=== PATIENT | female | born 1955 | race Caucasian/White ===

== ENCOUNTER 2016-06-13 07:49 | Observation (INO) | payer OTHER ==
[~2016-06-13] VITALS: Ht 157.5 cm; Wt 80.0 kg
[2016-06-13] VITALS (7 sets, daily range): BP systolic 128–171; BP diastolic 65–100; PULSE 77–91; RESP 20–22; TEMP 97.6–98.7; O2SAT 92–96
[2016-06-13] MEDS ORDERED: LISI-515 PO (08:19)
[2016-06-13] MEDS ORDERED: ATOR20TA15 PO (08:19)
[2016-06-13] MEDS ORDERED: FLUO-1 PO (08:19)
[2016-06-13] MEDS ORDERED: ASPI1TAB69 PO (08:19)
[2016-06-13 08:29] LABS: AUTOMATED NEUTROPHIL # 2.9 TH/MM3 (1.8-7.7); BASOPHIL % 0.5 % (0.0-2.0); EOSINOPHIL # 0.2 TH/MM3 (0-0.4); EOSINOPHIL % 3.1 % (0.0-4.0); HEMATOCRIT 42.9 % (35.0-46.0); HEMO FLAGS DIFF FINAL; LYMPH % 30.2 % (9.0-44.0); LYMPHOCYTE # 1.6 TH/MM3 (1.0-4.8); MEAN CELL VOLUME 87.7 FL (80.0-100.0); MEAN CORPUSCULAR HEMOGLOBIN 30.5 PG (27.0-34.0); MEAN CORPUSCULAR HGB CONC 34.7 % (32.0-36.0); MONO % 9.8 % (0.0-8.0); NEUT % 56.4 % (16.0-70.0); PLATELET COUNT 240 TH/MM3 (150-450); RED BLOOD COUNT 4.89 MIL/MM3 (4.00-5.30); RED CELL DISTRIBUTION WIDTH 11.9 % (11.6-17.2); WHITE BLOOD COUNT 5.1 TH/MM3 (4.0-11.0)
[2016-06-13 08:43] LABS: APTT (PATIENT) 25.9 SEC (24.3-30.1); PROTHROMBIN TIME - PATIENT 10.9 SEC (9.8-11.6)
[2016-06-13 08:44] LABS: ALT (GPT) 40 U/L (10-53); ANION GAP 13 MEQ/L (5-15); AST (GOT) 34 U/L (15-37); BICARBONATE 21.8 MEQ/L (21.0-32.0); CHLORIDE 103 MEQ/L (98-107); GLOMERULAR FILTRATION RATE 54 ML/MIN (>89); MAGNESIUM 2.2 MG/DL (1.5-2.5); POTASSIUM 3.6 MEQ/L (3.5-5.1); SODIUM (NA) 138 MEQ/L (136-145)
[2016-06-13] MEDS ORDERED: ASPIRIN 325 MG TAB PO ONE (08:45)
[2016-06-13] MEDS ORDERED: SODIUM CHLOR 0.9% 1000 ML INJ 1,000 ML IV ONE (08:45)
--- NOTE | 2016-06-13 08:45 | RADRPT ---
EXAM DATE/TIME: 06/13/2016 08:18 [place] COMPARISON: No previous studies available for comparison. INDICATIONS : Chest pains with palpitations and shortness of breath. MEDICAL HISTORY : None. SURGICAL HISTORY : None. ENCOUNTER: Initial ACUITY: 1 day PAIN SCORE: 9/10 LOCATION: Bilateral chest FINDINGS: A single view of the chest demonstrates the lungs to be symmetrically aerated without evidence of mas s, infiltrate or effusion. The cardiomediastinal contours are unremarkable. Osseous structures are intact. CONCLUSION: No acute disease. Dallas Bates MD FACR on June 13, 2016 at 8:43 Board Certified Radiologist. This report was verified electronically.
[2016-06-13 08:49] LABS: ALKALINE PHOSPHATASE 109 U/L (45-117); BLOOD UREA NITROGEN 16 MG/DL (7-18); CREATINE KINASE 185 U/L (26-192); TOTAL BILIRUBIN ADULT 0.9 MG/DL (0.2-1.0)
--- NOTE | 2016-06-13 08:51 | PD ---
HPI Chief Complaint: Cardiac Complaint Time Seen by Provider: 08:08 Travel History International Travel<30 days: No Contact w/Intl Traveler<30days: No Traveled to known affect area: No History of Present Illness HPI Patient is a 61-year-old female who presents to emergency with complaints of palpitations and high blood pressure. Patient reports that she has history of hypertension, hyperlipidemia, reports that for the past month, she has noticed that her blood pressure has been higher than normal for the past month. Reports that this morning, she woke up and had a high heart rate. Patient reports that she noticed that her pulse rate was in the 140s, reports that her blood pressure was 160/109. Patient reports that she "just felt like something was wrong." Patient denied diaphoresis, nausea or vomiting or shortness of breath or symptoms. Patient reports that she is here visiting from [place]. Denies chest pain at this time. Denies fevers or chills. She denies cough or congestion. PFSH Past Medical History High Cholesterol: Yes Diminished Hearing: No Hypertension: Yes Tetanus Vaccination: < 5 Years Influenza Vaccination: Yes ?: Not : 0 Para: 0 Miscarriage: 0 : 0 Past Surgical History Eye Surgery: Yes (R EYE BIOPSY ) Other Surgery: Yes (BILAT [place] Bunionectomy) Social History Alcohol Use: No Tobacco Use: No Substance Use: No Allergies-Medications (Allergen,Severity, Reaction): Coded Allergies: Tartrazine (FD&C Yellow #5) (Verified Allergy, Severe, 06/13/16) Reported Meds & Prescriptions Reported Meds & Active Scripts Active Reported Aspirin 81 Mg Tabdr 81 Mg PO BID Lisinopril 20 Mg Tab 20 Mg PO DAILY Prozac (Fluoxetine HCl) 10 Mg Cap 10 Mg PO DAILY Atorvastatin (Atorvastatin Calcium) 20 Mg Tab 20 Mg PO HS Review of Systems General / Constitutional: No: Fever Eyes: No: Visual changes HENT: No: Headaches Cardiovascular: Positive: Palpitations, Irregular Rhythm, Tachycardia, No: Chest Pain or Discomfort Respiratory: No: Shortness of Breath Gastrointestinal: No: Abdominal Pain Genitourinary: No: Dysuria Musculoskeletal: No: Pain Skin: No Rash Neurologic: No: Weakness Psychiatric: No: Depression Endocrine: No: Polydipsia Hematologic/Lymphatic: No: Easy Bruising Physical Exam Narrative GENERAL: No acute distress, nontoxic SKIN: Warm and dry. HEAD: Atraumatic. Normocephalic. EYES: Pupils equal and round. No scleral icterus. No injection or drainage. ENT: No nasal bleeding or discharge. Mucous membranes pink and moist. NECK: Trachea midline. No JVD. CARDIOVASCULAR: Regular rate and rhythm. No murmur appreciated. RESPIRATORY: No accessory muscle use. Clear to auscultation. Breath sounds equal bilaterally. GASTROINTESTINAL: Abdomen soft, non-tender, nondistended. Hepatic and splenic margins not palpable. MUSCULOSKELETAL: No obvious deformities. No clubbing. No cyanosis. No edema. NEUROLOGICAL: Awake and alert. No obvious cranial nerve deficits. Motor grossly within normal limits. Normal speech. PSYCHIATRIC: Appropriate mood and affect; insight and judgment normal. Data Data Last Documented VS Vital Signs Date Time Temp Pulse Resp B/P Pulse Ox O2 Delivery O2 Flow Rate FiO2 06/13/16 09:20 83 20 166/86 92 Room Air 06/13/16 07:50 98.7 Orders Electrocardiogram (06/13/16 ) Electrocardiogram (06/13/16 08:08) Ckmb (Isoenzyme) Profile (06/13/16 08:08) Complete Blood Count With Diff (06/13/16 08:08) Comprehensive Metabolic Panel (06/13/16 08:08) D-Dimer (06/13/16 08:08) Magnesium (Mg) (06/13/16 08:08) Prothrombin Time / Inr (Pt) (06/13/16 08:08) Act Partial Throm Time (Ptt) (06/13/16 08:08) Troponin I (06/13/16 08:08) Chest, Single Ap (06/13/16 08:08) Ecg Monitoring (06/13/16 08:08) Bilateral Bp Monitoring (06/13/16 08:08) Iv Access Insert/Monitor (06/13/16 08:08) Oximetry (06/13/16 08:08) Oxygen Administration (06/13/16 08:08) Thyroid Stimulating Hormone (06/13/16 08:10) Sodium Chlor 0.9% 1000 Ml Inj (Ns 1000 M (06/13/16 08:45) Aspirin (Aspirin) (06/13/16 08:45) CKMB (06/13/16 08:15) CKMB% (06/13/16 08:15) Labs Laboratory Tests Test 06/13/16 08:15 White Blood Count 5.1 TH/MM3 Red Blood Count 4.89 MIL/MM3 Hemoglobin 14.9 GM/DL Hematocrit 42.9 % Mean Corpuscular Volume 87.7 FL Mean Corpuscular Hemoglobin 30.5 PG Mean Corpuscular Hemoglobin 34.7 % Concent Red Cell Distribution Width 11.9 % Platelet Count 240 TH/MM3 Mean Platelet Volume 8.4 FL Neutrophils (%) (Auto) 56.4 % Lymphocytes (%) (Auto) 30.2 % Monocytes (%) (Auto) 9.8 % Eosinophils (%) (Auto) 3.1 % Basophils (%) (Auto) 0.5 % Neutrophils # (Auto) 2.9 TH/MM3 Lymphocytes # (Auto) 1.6 TH/MM3 Monocytes # (Auto) 0.5 TH/MM3 Eosinophils # (Auto) 0.2 TH/MM3 Basophils # (Auto) 0.0 TH/MM3 CBC Comment DIFF FINAL Differential Comment Prothrombin Time 10.9 SEC Prothromb Time International 1.0 RATIO Ratio Activated Partial 25.9 SEC Thromboplast Time D-Dimer Quantitative (PE/DVT) 0.28 MG/L FEU Sodium Level 138 MEQ/L Potassium Level 3.6 MEQ/L Chloride Level 103 MEQ/L Carbon Dioxide Level 21.8 MEQ/L Anion Gap 13 MEQ/L Blood Urea Nitrogen 16 MG/DL Creatinine 1.03 MG/DL Estimat Glomerular Filtration 54 ML/MIN Rate Random Glucose 107 MG/DL Calcium Level 9.2 MG/DL Magnesium Level 2.2 MG/DL Total Bilirubin 0.9 MG/DL Aspartate Amino Transf 34 U/L (AST/SGOT) Alanine Aminotransferase 40 U/L (ALT/SGPT) Alkaline Phosphatase 109 U/L Total Creatine Kinase 185 U/L Creatine Kinase MB 1.3 NG/ML Troponin I LESS THAN 0.02 NG/ML Total Protein 7.6 GM/DL Albumin 4.2 GM/DL Thyroid Stimulating Hormone 0.858 uIU/ML [facility] Medical Decision Making Medical Screen Exam Complete: Yes Emergency Medical Condition: Yes Interpretation(s) EKG at 0802: Normal sinus rhythm at 95 beats minute, QT/QTC 370/422, st seg depression lateral leads Differential Diagnosis Hyperthyroidism, PE, electrolyte abnormality, ACS, dehydration Narrative Course Patient is a 61-year-old female who presents to emergency room with complaints of palpitations. Patient reports that she woke up this morning and felt like the left side for heart was beating very fast, to take her pulse pressure which she noted to be around 140 bpm. Patient with no chest pain or shortness of breath at this time, no history of PE or DVT. Patient here for evaluation of palpitations. Patient was placed on a playground monitor upon arrival to the emergency room. EKG was obtained. Patient with normal sinus rhythm at 95 bpm. patient does have some ST segment depressions in the lateral leads. Labs as well as cardiac enzymes and x-ray of chest ordered. We'll continue to monitor patient. CBC & BMP Diagram 06/13/16 08:15 Last Impressions Chest X-Ray 06/13/16 0808 Signed Impressions: Service Date/Time: Monday, June 13, 2016 08:18 - CONCLUSION: No acute disease. Dallas Bates MD FACR All labs and all studies reviewed with patient in detail. Plan to admit patient to hospital for observation as pt does have ischemic changes on ekg, patient with st seg depression on ekg, pt given full dose asa. first set of ce neg. repeat ekg ordered. repeat ekg at 1005: nsr at 78bpm, qt/qtc: 401/434, non acute ekg case reviewed with FP residents who will obs for ischemic ekg as well as for cardiac monitoring Diagnosis Primary Impression: Abnormal EKG Additional Impressions: Heart palpitations Dehydration Admitting Information Admitting Physician Requests: Observation Carmen Eduardo DO Jun 13, 2016 08:51
[2016-06-13 09:02] LABS: CKMB 1.3 NG/ML (0.5-3.6)
--- NOTE | 2016-06-13 10:27 | HHI.HP ---
[facility] Service Family Medicine Primary Care Physician Jair Rosario MD Admission Diagnosis EKG abnormality, palpitations Diagnoses: International Travel<30 Days: No Contact w/Intl Traveler<30days: No Known Affected Area: No History of Present Illness 61-year-old female with PMH of HTN, hyperlipidemia presents with feelings of palpitations this morning. Patient states she went to bed in her normal state of health. When she got up this morning to get to the bathroom, she stood up and "felt different." She felt that her pulse was racing. She took her blood pressure and it was high at 160/109. She checked her pulse and it was 140 bpm. She woke her up and told him to take her to the emergency room. Her palpitations lasted about 30 minutes. Upon entering the emergency room they went away. She has roughly 2-3 diet Cokes per day and this is the only caffeine she has. In the past week, she has felt "red and hot" while having a bowel movement. This has normally lasted 1-2 minutes and goes away on its own. She denies chest pain, nausea, vomiting, diarrhea. Her bowel minutes of an normal. No dizziness or changes in vision. No headache. No night sweats or weight loss. She did wake up last night with a dry cough and has had a couple episodes of coughing since that time. She takes fluoxetine, lisinopril, and atorvastatin. No new medications in the last few months. Review of Systems Constitutional: DENIES: Fever, Weight loss, Chills, Night Sweats Eyes: DENIES: Blurred vision, Diplopia Ears, nose, mouth, throat: DENIES: Tinnitus, Hearing loss, Ear Pain Respiratory: COMPLAINS OF: Cough, DENIES: Sputum production, Shortness of breath Cardiovascular: COMPLAINS OF: Palpitations, DENIES: Chest pain, Syncope Gastrointestinal: COMPLAINS OF: Constipation (contipation is normal for her; she was not straining), DENIES: Abdominal pain, Black stools, Bloody stools, Diarrhea, Nausea, Vomiting Genitourinary: DENIES: Urinary frequency, Urinary incontinence, Dysuria Neurologic: DENIES: Abnormal gait, Headache Psychiatric: DENIES: Anxiety, Confusion Past Family Social History Past Medical History HTN Depression HLD Past Surgical History Biopsy of eye lesion- benign Eye lid surgery years ago [place] surgery Reported Medications Reported Meds & Active Scripts Active Reported Aspirin 81 Mg Tabdr 81 Mg PO BID Lisinopril 20 Mg Tab 20 Mg PO DAILY Prozac (Fluoxetine HCl) 10 Mg Cap 10 Mg PO DAILY Atorvastatin (Atorvastatin Calcium) 20 Mg Tab 20 Mg PO HS Vitamin D Allergies: Coded Allergies: Tartrazine (FD&C Yellow #5) (Verified Allergy, Severe, 06/13/16) Active Ordered Medications Active Medications Aspirin (Aspirin) 325 mg ONCE ONCE PO Last administered on 06/13/16 09:20; Admin Dose 325 MG; Start 06/13/16 at 08:45; Stop 06/13/16 at 08:48; Status DC Sodium Chloride (NS 1000 ml Inj) 1,000 ml @ 999 mls/hr BOLUS ONCE IV Last administered on 06/13/16 09:20; Admin Dose 999 MLS/HR; Start 06/13/16 at 08:45; Stop 06/13/16 at 09:45; Status DC Family History Dad: heart attack at 50 and 57 () Brother: heart attack at 48 () Mother: stroke Social History Tobacco: quit 5 years. Smoked 1 ppd for 35 years prior Alcohol: none No other drugs Physical Exam Vital Signs Vital Signs Date Time Temp Pulse Resp B/P Pulse Ox O2 Delivery O2 Flow Rate FiO2 06/13/16 09:20 83 20 166/86 92 Room Air 06/13/16 07:50 98.7 91 20 171/100 95 Physical Exam GENERAL: This is a well-nourished, well-developed patient, in no apparent distress. SKIN: No rashes, ecchymoses or lesions. Cool and dry. HEAD: Atraumatic. Normocephalic. No temporal or scalp tenderness. EYES: Pupils equal round and reactive. Extraocular motions intact. No scleral icterus. No injection or drainage. ENT: Nose without bleeding, purulent drainage or septal hematoma. Throat without erythema, tonsillar hypertrophy or exudate. Uvula midline. Airway patent. NECK: Trachea midline. No JVD or lymphadenopathy. Supple, nontender, no meningeal signs. CARDIOVASCULAR: Regular rate and rhythm without murmurs, gallops, or rubs. RESPIRATORY: Clear to auscultation. Breath sounds equal bilaterally. No wheezes , rales, or rhonchi. GASTROINTESTINAL: Abdomen soft, non-tender, nondistended. No hepato-splenomegaly , or palpable masses. No guarding. MUSCULOSKELETAL: Extremities without clubbing, cyanosis, or edema. No joint tenderness, effusion, or edema noted. No calf tenderness. Negative Homans sign bilaterally. NEUROLOGICAL: Awake and alert. Cranial nerves II through XII intact. Motor and sensory grossly within normal limits. Five out of 5 muscle strength in all muscle groups. Normal speech. Laboratory Laboratory Tests Test 06/13/16 08:15 White Blood Count 5.1 Red Blood Count 4.89 Hemoglobin 14.9 Hematocrit 42.9 Mean Corpuscular Volume 87.7 Mean Corpuscular Hemoglobin 30.5 Mean Corpuscular Hemoglobin 34.7 Concent Red Cell Distribution Width 11.9 Platelet Count 240 Mean Platelet Volume 8.4 Neutrophils (%) (Auto) 56.4 Lymphocytes (%) (Auto) 30.2 Monocytes (%) (Auto) 9.8 Eosinophils (%) (Auto) 3.1 Basophils (%) (Auto) 0.5 Neutrophils # (Auto) 2.9 Lymphocytes # (Auto) 1.6 Monocytes # (Auto) 0.5 Eosinophils # (Auto) 0.2 Basophils # (Auto) 0.0 CBC Comment DIFF FINAL Differential Comment Prothrombin Time 10.9 Prothromb Time International 1.0 Ratio Activated Partial 25.9 Thromboplast Time D-Dimer Quantitative (PE/DVT) 0.28 Sodium Level 138 Potassium Level 3.6 Chloride Level 103 Carbon Dioxide Level 21.8 Anion Gap 13 Blood Urea Nitrogen 16 Creatinine 1.03 Estimat Glomerular Filtration 54 Rate Random Glucose 107 Calcium Level 9.2 Magnesium Level 2.2 Total Bilirubin 0.9 Aspartate Amino Transf 34 (AST/SGOT) Alanine Aminotransferase 40 (ALT/SGPT) Alkaline Phosphatase 109 Total Creatine Kinase 185 Creatine Kinase MB 1.3 Troponin I LESS THAN 0.02 Total Protein 7.6 Albumin 4.2 Thyroid Stimulating Hormone 0.858 3rd Gen Result Diagram: 06/13/1615 06/13/1615 Imaging Last Impressions Chest X-Ray 06/13/16 0808 Signed Impressions: Service Date/Time: Monday, June 13, 2016 08:18 - CONCLUSION: No acute disease. Dallas Bates MD FACR Assessment and Plan Assessment and Plan 61-year-old female with history of hypertension, hyperlipidemia presents with feelings of palpitations since this morning. EKG shows sinus rhythm with incomplete right bundle branch block. Code Status Full Discussed Condition With Dr. Jayce Melendez Problem List: (1) Heart palpitations Status: Acute Plan: Unclear etiology at this time. Patient's palpitations resolved by the time she came into the emergency room. Initial EKG does reveal incomplete right bundle branch block and ST depressions. Second EKG shows incomplete right bundle branch block and the depressions have resolved. Initial troponins 0.02 TSH 0.858 D-dimer 0.[address] the patient on pick up and delivery driver Rule out myocardial infarction with Serial troponins and EKGs at 1400 and 2000 Consider cardiac consultation and/or echocardiography. (2) FEN/PPX Status: Acute Plan: Fluids: Tolerating by mouth Electrolytes: Monitor and replace when necessary Nutrition: Regular diet Prophylaxis: bilateral SCDs Hypertension: Continue patient's lisinopril 20 mg by mouth daily Depression: Continue Prozac 10 mg by mouth daily Hyperlipidemia: Continue Lipitor 20 mg by mouth at bedtime Physician Certification 2 Midnight Certification Type: Admission for Inpatient Services Order for Inpatient Services The services are ordered in accordance with Medicare regulations or non- Medicare payer requirements, as applicable. In the case of services not specified as inpatient-only, they are appropriately provided as inpatient services in accordance with the 2-midnight benchmark. Estimated LOS (days): 1 days is the estimated time the patient will need to remain in the hospital, assuming treatment plan goals are met and no additional complications. Post-Hospital Plan: Home Hubert Duncan MD R2 Jun 13, 2016 10:27
--- NOTE | 2016-06-13 11:54 | EKG ---
Date Performed: 06/13/2016 Time Performed: 10:05:15 PTAGE: 61 years EKG: Sinus rhythm INDETERMINATE AXIS PATTERN CONSISTENT WITH PULMONARY DISEASE INCOMPLETE RIGHT BUNDLE BRANCH BLOCK AB NORMAL ECG PREVIOUS TRACING : 06/13/2016 08.02 DOCTOR: Hal Pollock Interpretating Date/Time 06/13/2016 11:53:22
--- NOTE | 2016-06-13 11:56 | EKG ---
Date Performed: 06/13/2016 Time Performed: 08:02:57 PTAGE: 61 years EKG: Sinus rhythm INDETERMINATE AXIS PATTERN CONSISTENT WITH PULMONARY DISEASE INCOMPLETE RIGHT BUNDLE BRANCH BLOCK MO DERATE ST DEPRESSION ABNORMAL ECG NO PREVIOUS TRACING DOCTOR: Hal Pollock Interpretating Date/Time 06/13/2016 11:54:19
[2016-06-13] MEDS ORDERED: ACETAMINOPHEN 325 MG TAB PO PRN (12:00)
[2016-06-13] MEDS ORDERED: hydrALAZINE HCL 10 MG TAB PO PRN (12:00)
--- NOTE | 2016-06-13 12:30 | HHI.FPPN ---
Subjective Subjective Patient seen and examined. Case reviewed and discussed Please refer to resident H&P for further details regarding HPI, ROS, PMH, SurgHx , FH and SocHx In summary, patient reports that she has noted several episodes over the last week of flushing, increased head pressure lasting several minutes which would spontaneously resolve This am, she reports she got up and noted her heart to feel like it was racing, took her BP machine and pulse read into the 140s. No chest pain, no nausea, no radiation. No shortness of breath. She also reports elevated BP over the last few weeks Takes atorvastatin and lisinopril and Prozac. No recent medication changes over the last year. She presented to the ED after this chest feeling would not go away. Upon arrival to the ED, initial ekg did show ST depressions while she was having this episode which subsequently resolved. [facility] Objective Objective Last Impressions Chest X-Ray 06/13/16 0808 Signed Impressions: Service Date/Time: Monday, June 13, 2016 08:18 - CONCLUSION: No acute disease. Dallas Bates MD FACR Laboratory Tests - Abnormals Test 06/13/16 08:15 Monocytes (%) (Auto) 9.8 % Creatinine 1.03 MG/DL Estimat Glomerular Filtration 54 ML/MIN Rate Random Glucose 107 MG/DL Troponin I LESS THAN 0.02 NG/ML Vital Signs 06/13/16 06/13/16 07:50 09:20 Temp 98.7 Pulse 91 83 Resp 20 20 B/P 171/100 166/86 Pulse Ox 95 92 O2 Delivery Room Air Physical exam GENERAL: wdwn female, sitting up in bed SKIN: Warm and dry.no rashes HEAD: Normocephalic. at EYES: No scleral icterus. No injection or drainage. ENT: OP Clear. MMM. NC in place NECK: Supple, trachea midline. No JVD or lymphadenopathy. CARDIOVASCULAR: Regular rate and rhythm without murmurs, gallops, or rubs. RESPIRATORY: Breath sounds equal bilaterally. No accessory muscle use. GASTROINTESTINAL: Abdomen soft, non-tender, nondistended. No rebound, guarding MUSCULOSKELETAL: No cyanosis, or edema. No calf tenderness BACK: Nontender without obvious deformity. No CVA tenderness. NEURO: Awake and alert. Normal speech. CN grossly intact Assessment Assessment 61yoF admitted with: Racing heart/palpitations HTN HL Depression Hx tobacco dependence Renal insufficiency PLAN PLAN Serial ekg, trop Patient to notify MD for recurrent symptoms Telemetry monitoring Cardiology consultation ?event recorder 2D echo Resume home meds as appropriate Patient seen and examined. Case reviewed and discussed Agree with plan of care as discussed with me and documented in the resident note. Yeimi Calloway MD Jun 13, 2016 12:30
[2016-06-13] MEDS ORDERED: ATORVASTATIN 20 MG TAB PO SCH (21:00)
[2016-06-13] MEDS ORDERED: DOCUSATE SODIUM 50 MG/SENNA 8.6 MG TAB PO PRN (21:00)
--- NOTE | 2016-06-13 22:32 | MB ---
cc: DON GAN DATE OF CONSULTATION: 06/13/16 HISTORY OF PRESENT ILLNESS Ms. Guido is a very pleasant 61-year-old white female with a history of hypertension and dyslipidemia. She got out of bed this morning, she developed palpitations, tachycardia, hypertension. Her pulse was 140 beats per minute. She has not had any chest pain, no shortness of breath, dizziness or lightheadedness. Her symptoms subsided after 30 minutes. She has had several recent episodes of face flushing when going to the bathroom. PAST MEDICAL HISTORY 1. Hypertension. 2. Dyslipidemia. 3. Depression. PAST SURGICAL HISTORY 1. Eye lesion biopsy and surgery. 2. Hernia. 3. Bunion surgery. MEDICATIONS 1. Aspirin 2. Lisinopril. 3. Prozac. 4. Atorvastatin. 5. Vitamin D. ALLERGIES TARTRAZINE. SOCIAL HISTORY The patient quit smoking five years ago. She does not drink alcohol. FAMILY HISTORY Positive for myocardial infarction in her father and brother and stroke in her mother. REVIEW OF SYSTEMS Otherwise negative. PHYSICAL EXAMINATION VITAL SIGNS: Blood pressure 149/78, pulse 81 and regular. HEAD, EYES, EARS, NOSE, AND THROAT: Negative. NECK: 2+ carotid upstrokes. No bruits. LUNGS: Clear. HEART: Regular with no murmur, gallop or rub. ABDOMEN: Soft. No bruits. EXTREMITIES: Without edema. 2+ positive pulses. NEUROLOGIC: Exam is grossly nonfocal. Her last EKG was reviewed and showed normal sinus rhythm with an indeterminate axis, RSR prime in V2 and nonspecific ST changes. LABORATORY DATA Hemoglobin 14.9, potassium 3.6, creatinine 1.0, AST and ALT normal, troponin negative x2, TSH 0.85. DIAGNOSES 1. Palpitations. 2. Tachycardia. 3. Hypertension. 4. Dyslipidemia. DISPOSITION Ms. Guido will be monitored on telemetry. I will check her echocardiogram. If she remains stable, she can be discharged home tomorrow. I will see her for followup in my office after discharge. We will then obtain long-term cardiac monitoring. MD EVGENY Anderson/MICHEL /6:30 PM /9:51 PM [facility]
[2016-06-14 00:38] VITALS: BP 141/74; PULSE 77; RESP 20; TEMP 97.4; O2SAT 97
[2016-06-14 04:05] VITALS: BP 157/77; PULSE 70; PULSE 97; RESP 20; TEMP 98; O2SAT 98
[2016-06-14 06:32] LABS: AUTOMATED NEUTROPHIL # 3.4 TH/MM3 (1.8-7.7); BASOPHIL % 0.3 % (0.0-2.0); EOSINOPHIL # 0.3 TH/MM3 (0-0.4); EOSINOPHIL % 4.3 % (0.0-4.0); HEMATOCRIT 39.9 % (35.0-46.0); HEMO FLAGS DIFF FINAL; LYMPH % 31.5 % (9.0-44.0); MEAN CELL VOLUME 88.9 FL (80.0-100.0); MEAN CORPUSCULAR HEMOGLOBIN 30.8 PG (27.0-34.0); MEAN CORPUSCULAR HGB CONC 34.6 % (32.0-36.0); MONO % 9.8 % (0.0-8.0); NEUT % 54.1 % (16.0-70.0); PLATELET COUNT 216 TH/MM3 (150-450); RED BLOOD COUNT 4.49 MIL/MM3 (4.00-5.30); RED CELL DISTRIBUTION WIDTH 11.9 % (11.6-17.2); WHITE BLOOD COUNT 6.4 TH/MM3 (4.0-11.0)
[2016-06-14 07:07] LABS: BICARBONATE 26.1 MEQ/L (21.0-32.0); POTASSIUM 4.8 MEQ/L (3.5-5.1)
[2016-06-14 07:36] VITALS: BP 153/74; PULSE 73; RESP 20; TEMP 98.1; O2SAT 96
--- NOTE | 2016-06-14 08:54 | PD.CARD.PN ---
Subjective Subjective Remarks No CP, SOB or palpitations Objective Medications Current Medications Medications (Trade) Dose Ordered Sig/Derick Route Start Time Stop Time Status Last Admin (Apresoline) 10 mg Q6H PRN PO 06/13/16 12:00 (Melissa-Colace) 1 tab HS PRN PO 06/13/16 21:00 (Tylenol) 650 mg Q4H PRN PO 06/13/16 12:00 06/14/16 08:46 (Lipitor) 20 mg HS PO 06/13/16 21:00 06/13/16 22:36 (PROzac) 10 mg DAILY PO 06/14/16 09:00 06/14/16 08:46 (Prinivil) 20 mg DAILY PO 06/14/16 09:00 06/14/16 08:46 Vital Signs / I&O Vital Signs Date Time Temp Pulse Resp B/P Pulse Ox O2 Delivery O2 Flow Rate FiO2 06/14/16 07:36 98.1 73 20 153/74 96 06/14/16 04:05 98.0 70 20 157/77 98 06/14/16 04:05 97 06/14/16 00:38 97.4 77 20 141/74 97 06/13/16 20:24 97.6 80 20 158/65 96 06/13/16 16:11 98.7 81 22 149/78 96 06/13/16 15:00 90 06/13/16 14:50 98.5 77 22 128/68 95 06/13/16 13:02 81 20 150/75 96 Room Air 06/13/16 09:20 83 20 166/86 92 Room Air Physical Exam GENERAL: SKIN: Warm and dry. HEAD: Normocephalic. EYES: No scleral icterus. No injection or drainage. NECK: Supple, trachea midline. No JVD or lymphadenopathy. CARDIOVASCULAR: Regular rate and rhythm without murmurs, gallops, or rubs. RESPIRATORY: Breath sounds equal bilaterally. No accessory muscle use. GASTROINTESTINAL: Abdomen soft, non-tender, nondistended. MUSCULOSKELETAL: No cyanosis, or edema. Laboratory Laboratory Tests Test 06/13/16 06/13/16 06/14/16 15:20 19:53 05:22 Troponin I LESS THAN 0.02 LESS THAN 0.02 NG/ML NG/ML White Blood Count 6.4 TH/MM3 Red Blood Count 4.49 MIL/MM3 Hemoglobin 13.8 GM/DL Hematocrit 39.9 % Mean Corpuscular Volume 88.9 FL Mean Corpuscular Hemoglobin 30.8 PG Mean Corpuscular Hemoglobin 34.6 % Concent Red Cell Distribution Width 11.9 % Platelet Count 216 TH/MM3 Mean Platelet Volume 8.4 FL Neutrophils (%) (Auto) 54.1 % Lymphocytes (%) (Auto) 31.5 % Monocytes (%) (Auto) 9.8 % Eosinophils (%) (Auto) 4.3 % Basophils (%) (Auto) 0.3 % Neutrophils # (Auto) 3.4 TH/MM3 Lymphocytes # (Auto) 2.0 TH/MM3 Monocytes # (Auto) 0.6 TH/MM3 Eosinophils # (Auto) 0.3 TH/MM3 Basophils # (Auto) 0.0 TH/MM3 CBC Comment DIFF FINAL Differential Comment Sodium Level 141 MEQ/L Potassium Level 4.8 MEQ/L Chloride Level 106 MEQ/L Carbon Dioxide Level 26.1 MEQ/L Anion Gap 9 MEQ/L Blood Urea Nitrogen 16 MG/DL Creatinine 1.04 MG/DL Estimat Glomerular Filtration 54 ML/MIN Rate Random Glucose 98 MG/DL Calcium Level 9.1 MG/DL Imaging Last Impressions Chest X-Ray 06/13/16 0808 Signed Impressions: Service Date/Time: Monday, June 13, 2016 08:18 - CONCLUSION: No acute disease. Dallas Bates MD FACR Assessment and Plan Problem List: (1) Palpitations (2) Tachycardia (3) HTN (hypertension) (4) Dyslipidemia Assessment and Plan No recurrent palpitations. Continue and titrate BP control. OK to discharge home. Will schedule outpt card f/u. Franklin Eastman MD Jun 14, 2016 08:54
[2016-06-14] MEDS ORDERED: LISINOPRIL 20 MG TAB PO SCH (09:00)
[2016-06-14] MEDS ORDERED: FLUoxetine HCL 10 MG CAP PO SCH (09:00)
[2016-06-14 11:27] VITALS: PULSE 86
[2016-06-14 12:00] VITALS: BP 141/79; PULSE 78; RESP 20; TEMP 98.8; O2SAT 95
[2016-06-14] MEDS ORDERED: LISI40TA PO (13:33)
--- NOTE | 2016-06-14 13:33 | HHI.DCPOC ---
Discharge Care Plan Diagnosis: (1) Palpitations Goals to Promote Your Health * To prevent worsening of your condition and complications * To maintain your health at the optimal level Directions to Meet Your Goals Take your medications as prescribed Follow your dietary instruction Follow activity as directed Keep your appointments as scheduled Take your immunizations and boosters as scheduled If your symptoms worsen call your PCP, if no PCP go to Urgent Care Center or Emergency Room Smoking is Dangerous to Your Health. Avoid second hand smoke Call the 24-hour hour crisis hotline for domestic abuse at Hubert Duncan MD R2 Jun 14, 2016 13:33
--- NOTE | 2016-06-14 13:50 | HHI.FPPN ---
Subjective Remarks She was doing well this morning. No more episodes of palpitations. No chest pain, nausea, vomiting, diarrhea, headache, vision changes. (Hubert Duncan MD R2) Objective Vitals Vital Signs Date Time Temp Pulse Resp B/P Pulse Ox O2 Delivery O2 Flow Rate FiO2 06/14/16 11:27 86 06/14/16 09:46 18 06/14/16 07:36 98.1 73 20 153/74 96 06/14/16 04:05 98.0 70 20 157/77 98 06/14/16 04:05 97 06/14/16 00:38 97.4 77 20 141/74 97 06/13/16 20:24 97.6 80 20 158/65 96 06/13/16 16:11 98.7 81 22 149/78 96 06/13/16 15:00 90 06/13/16 14:50 98.5 77 22 128/68 95 (Hubert Duncan MD R2) Result Diagram: 06/14/1652106/14/16521 Objective Remarks O. CONSTITUTIONAL/GEN: normally nourished, in NAD. EYES: conjunctiva normal, PERRLA, EOMI. ENT: Mouth and pharynx normal. NECK: thyroid midline, carotids symmetrical. LUNGS: clear A-P, respiratory effort is normal. CARDIOVASCULAR: RR without murmur or gallop. No significant edema. GI/ABD: soft without masses, without organomegaly. : no CVA tenderness NEURO: No focal deficits. Gait is normal SKIN: color normal, no rashes noted. HEME/LYMPH: no bruising, petechia or significant adenopathy MUSC: back is normal in appearance. Extremities are normal in appearance. PSYCH/MENTAL STATUS: Alert and oriented x 3. (Hubert Duncan MD R2) A/P Assessment and Plan 61-year-old female with history of hypertension, hyperlipidemia presented yesterday with feelings of palpitations. Cardiology consulted and echo performed. Patient will follow up with cardiology as an outpatient. Discharge Planning Today pending formal echo read. (Hubert Duncan MD R2) Attending Attestation Patient seen and examined with the resident team. Case reviewed and discussed Agree with plan of care as discussed with me and documented in the resident note. (Yeimi Calloway MD) Problem List: (1) Heart palpitations Status: Acute Plan: Cardiology consulted Troponins negative 3. TSH 0.858 Echo performed and pending read. Discharge pending formal echo read. (2) FEN/PPX Status: Acute Plan: Fluids: Tolerating by mouth Electrolytes: Monitor and replace when necessary Nutrition: Regular diet Prophylaxis: bilateral SCDs Hypertension: Increase lisinopril to 40 mg daily given persistent high blood pressure. Patient to keep a blood pressure diary and follow up with PCP and cardiology. Depression: Continue Prozac 10 mg by mouth daily Hyperlipidemia: Continue Lipitor 20 mg by mouth at bedtime (Hubert Duncan MD R2) Hubert Duncan MD R2 Jun 14, 2016 13:49 Yeimi Calloway MD Jun 15, 2016 11:46
[2016-06-14] MEDS ORDERED: LISINOPRIL 20 MG TAB PO ONE (14:00)
--- NOTE | 2016-06-14 19:01 | EC ---
Study Study Date:06/14/2016 STUDY CONCLUSIONS SUMMARY LEFT VENTRICLE: The cavity size was normal. Wall thickness was normal. Systolic function was normal. The estimated ejection fraction was in the range of 55% to 60%. Wall motion was normal; there were no regional wall motion abnormalities. If LV function is below 40, please consider prescribing an ACEI or ARB or document rationale for non-use. PROCEDURE DATA STUDY STATUS: Elective. Procedure: Transthoracic echocardiography. Image quality was good. Scanning was performed from the parasternal, apical, and subcostal acoustic windows. Study completion: The patient tolerated the procedure well. Transthoracic echocardiography. M-mode, complete 2D, complete spectral Doppler, and color Doppler. Patient status: Inpatient. CARDIAC ANATOMY LEFT VENTRICLE: The cavity size was normal. Wall thickness was normal. Systolic function was normal. The estimated ejection fraction was in the range of 55% to 60%. Wall motion was normal; there were no regional wall motion abnormalities. AORTIC VALVE: Trileaflet; normal thickness leaflets. Doppler: Transvalvular velocity was within the normal range. There was no stenosis. No regurgitation. Peak gradient: 14mm Hg (S). AORTA: Aortic root: The aortic root was normal in size. MITRAL VALVE: Structurally normal valve. Doppler: Transvalvular velocity was within the normal range. There was no evidence for stenosis. Trace to mild regurgitation. LEFT ATRIUM: The atrium was normal in size. RIGHT VENTRICLE: The cavity size was normal. Wall thickness was normal. PULMONIC VALVE: Doppler: Transvalvular velocity was within the normal range. There was no evidence for stenosis. No regurgitation. TRICUSPID VALVE: Structurally normal valve. Doppler: Transvalvular velocity was within the normal range. No regurgitation. PULMONARY ARTERY: The main pulmonary artery was normal-sized. Systolic pressure was within the normal range. RIGHT ATRIUM: The atrium was normal in size. PERICARDIUM: There was no pericardial effusion. SYSTEMIC VEINS: Inferior vena cava: The vessel was normal in size. BASIC MEASUREMENTS ADULT Normal Left ventricle LV internal dimension, ED, chordal level, *40 mm 43-52 PLAX LV internal dimension, ES, chordal level, 31.1 mm 23-38 PLAX Fractional shortening, chordal level, PLAX *22 % >29 LV posterior wall thickness, ED 7.69 mm IVS/LVPW ratio, ED *1.46 <1.3 Ventricular septum Septal thickness, ED 11.2 mm Left atrium Anterior-posterior dimension 28 mm Right ventricle RV internal dimension, ED, PLAX *18 mm 19-38 DOPPLER MEASUREMENTS ADULT Normal Main pulmonary artery Pressure, S 19 mm Hg =30 Aortic valve Peak velocity, S 188 cm/s Peak gradient, S 14 mm Hg Mitral valve Peak E-wave velocity 57.3 cm/s Peak A-wave velocity 85.4 cm/s Peak E/A ratio 0.7 Tricuspid valve Regurgitant peak velocity 187 cm/s Peak RV-RA gradient, S 14 mm Hg Maximal regurgitant velocity 187 cm/s Systemic veins Estimated CVP 5 mm Hg Right ventricle RV pressure, S 19 mm Hg <30 LEGEND: Mean values are shown as u=mean value. Asterisk (*) govea values outside specified normal range. Prepared and signed by Aramis Davis [id number]
--- NOTE | 2016-06-14 23:51 | EKG ---
Date Performed: 06/13/2016 Time Performed: 20:33:44 PTAGE: 61 years EKG: Sinus rhythm INDETERMINATE AXIS PATTERN CONSISTENT WITH PULMONARY DISEASE INCOMPLETE RIGHT BUNDLE BRANCH BLOCK AB NORMAL ECG PREVIOUS TRACING : 06/13/2016 10.05 Compared to prior tracing no significant change DOCTOR: Cricket Yo Interpretating Date/Time 06/14/2016 23:49:24
--- NOTE | 2016-06-15 | EKG ---
Date Performed: 06/13/2016 Time Performed: 14:12:37 PTAGE: 61 years EKG: Sinus rhythm INDETERMINATE AXIS PATTERN CONSISTENT WITH PULMONARY DISEASE INCOMPLETE RIGHT BUNDLE BRANCH BLOCK AB NORMAL ECG INTERPRETATION BASED ON A DEFAULT AGE OF 40 YEARS NO PREVIOUS TRACING DOCTOR: Cricket Yo Interpretating Date/Time 06/14/2016 23:59:52
== END 2016-06-14 17:27 | disposition home or self-care (01) ==
LOC: NEPE 07:49 → NEDA 10:26 → NEPGCP 13:12
PROVIDERS: ADMIT Family Medicine; ATTEND Family Medicine
DX: R00.2 Palpitations (principal); I10 Essential (primary) hypertension; E78.5 Hyperlipidemia, unspecified; E78.00 Pure hypercholesterolemia, unspecified; Z79.899 Other long term (current) drug therapy; E86.0 Dehydration; R05 Cough; Z87.891 Personal history of nicotine dependence; I45.10 Unspecified right bundle-branch block; N28.9 Disorder of kidney and ureter, unspecified; R94.31 Abnormal electrocardiogram [ECG] [EKG]; F32.9 Major depressive disorder, single episode, unspecified
CPT/HCPCS: 71010; 80048; 80053; 82550; 82552; 83735; 84443; 84484; 85025; 85379; 85610; 85730; 93005; 93306; 96360; 99285; G0378; J7030

== ENCOUNTER 2016-06-28 08:22 | Observation (INO) | payer OTHER ==
[~2016-06-28 08:22] MED LIST: ASPI1TAB69 PO; ATOR20TA15 PO; FLUO-1 PO; LISI40TA PO
[2016-06-28 08:24] VITALS: BP 172/79; PULSE 80; RESP 20; TEMP 98.1; O2SAT 98
--- NOTE | 2016-06-28 08:42 | PD ---
HPI Chief Complaint: Chest Pain Time Seen by Provider: 08:38 Travel History International Travel<30 days: No Contact w/Intl Traveler<30days: No Traveled to known affect area: No History of Present Illness HPI 61-year-old female with history of hypertension, presents to the ER today because she is having sharp intermittent episodic chest pains lasting a few seconds at a time which she currently measures that a 310. She states that it is more of a discomfort. She does not know any exacerbating or alleviating factors. She denies any shortness of breath, nausea, or any other symptoms. She states that she is supposed to follow-up with Dr. Eastman next week for stress test. Modifying Factors: None Associated Signs & Symptoms: Intermittent chest pain Risk Factors: Hypertension PFSH Past Medical History Asthma: No Blood Disorders: No Anxiety: No Depression: No Heart Rhythm Problems: No Cancer: No Cardiovascular Problems: No High Cholesterol: Yes Chemotherapy: No Chest Pain: No Congestive Heart Failure: No COPD: No Diabetes: No Diminished Hearing: No Endocrine: No Genitourinary: No Hypertension: Yes Immune Disorder: No Musculoskeletal: No Psychiatric: No Reproductive: No Respiratory: No Radiation Therapy: No Sleep Apnea: No Thyroid Disease: No : 0 Para: 0 Miscarriage: 0 : 0 Past Surgical History Eye Surgery: Yes (R EYE BIOPSY ) Other Surgery: Yes (BILAT [place] Bunionectomy) Social History Alcohol Use: No Tobacco Use: No Substance Use: No Allergies-Medications (Allergen,Severity, Reaction): Coded Allergies: Tartrazine (FD&C Yellow #5) (Verified Allergy, Severe, 06/28/16) Reported Meds & Prescriptions Reported Meds & Active Scripts Active Lisinopril 40 Mg Tab 40 Mg PO DAILY Reported Aspirin 81 Mg Tabdr 81 Mg PO BID Prozac (Fluoxetine HCl) 10 Mg Cap 60 Mg PO DAILY Atorvastatin (Atorvastatin Calcium) 20 Mg Tab 40 Mg PO HS Review of Systems Except as stated in HPI: all other systems reviewed are Neg Physical Exam Narrative GENERAL: Well-developed, pleasant elderly white female patient currently not in acute distress. Awake and oriented 3. SKIN: Warm and dry. HEAD: Atraumatic. Normocephalic. EYES: Pupils equal and round. No scleral icterus. No injection or drainage. ENT: No nasal bleeding or discharge. Mucous membranes pink and moist. NECK: Trachea midline. No JVD. CARDIOVASCULAR: Regular rate and rhythm. No murmur appreciated. Pulses are equal and present bilaterally. RESPIRATORY: No accessory muscle use. Clear to auscultation. Breath sounds equal bilaterally. GASTROINTESTINAL: Abdomen soft, non-tender, nondistended. Hepatic and splenic margins not palpable. MUSCULOSKELETAL: No obvious deformities. No clubbing. No cyanosis. No edema. NEUROLOGICAL: Awake and alert. No obvious cranial nerve deficits. Motor grossly within normal limits. Normal speech. PSYCHIATRIC: Appropriate mood and affect; insight and judgment normal. Data Data Last Documented VS Vital Signs Date Time Temp Pulse Resp B/P Pulse Ox O2 Delivery O2 Flow Rate FiO2 06/28/16 08:43 77 18 135/88 98 Room Air 138/61 06/28/16 08:24 98.1 Orders Electrocardiogram (06/28/16 08:29) Ckmb (Isoenzyme) Profile (06/28/16 08:38) Complete Blood Count With Diff (06/28/16 08:38) Comprehensive Metabolic Panel (06/28/16 08:38) Magnesium (Mg) (06/28/16 08:38) Prothrombin Time / Inr (Pt) (06/28/16 08:38) Act Partial Throm Time (Ptt) (06/28/16 08:38) Troponin I (06/28/16 08:38) Chest, Single Ap (06/28/16 08:38) Ecg Monitoring (06/28/16 08:38) Bilateral Bp Monitoring (06/28/16 08:38) Iv Access Insert/Monitor (06/28/16 08:38) Oximetry (06/28/16 08:38) Oxygen Administration (06/28/16 08:38) Sodium Chloride 0.9% Flush (Ns Flush) (06/28/16 08:45) CKMB (06/28/16 08:40) CKMB% (06/28/16 08:40) Labs Laboratory Tests Test 06/28/16 08:40 White Blood Count 5.1 TH/MM3 Red Blood Count 4.51 MIL/MM3 Hemoglobin 13.4 GM/DL Hematocrit 40.7 % Mean Corpuscular Volume 90.2 FL Mean Corpuscular Hemoglobin 29.7 PG Mean Corpuscular Hemoglobin 32.9 % Concent Red Cell Distribution Width 12.3 % Platelet Count 204 TH/MM3 Mean Platelet Volume 8.5 FL Neutrophils (%) (Auto) 58.1 % Lymphocytes (%) (Auto) 31.7 % Monocytes (%) (Auto) 7.8 % Eosinophils (%) (Auto) 1.8 % Basophils (%) (Auto) 0.6 % Neutrophils # (Auto) 3.0 TH/MM3 Lymphocytes # (Auto) 1.6 TH/MM3 Monocytes # (Auto) 0.4 TH/MM3 Eosinophils # (Auto) 0.1 TH/MM3 Basophils # (Auto) 0.0 TH/MM3 CBC Comment DIFF FINAL Differential Comment Prothrombin Time 10.8 SEC Prothromb Time International 1.0 RATIO Ratio Activated Partial 24.5 SEC Thromboplast Time Sodium Level 140 MEQ/L Potassium Level 4.0 MEQ/L Chloride Level 105 MEQ/L Carbon Dioxide Level 25.9 MEQ/L Anion Gap 9 MEQ/L Blood Urea Nitrogen 14 MG/DL Creatinine 1.04 MG/DL Estimat Glomerular Filtration 54 ML/MIN Rate Random Glucose 97 MG/DL Calcium Level 8.8 MG/DL Magnesium Level 2.2 MG/DL Total Bilirubin 0.5 MG/DL Aspartate Amino Transf 20 U/L (AST/SGOT) Alanine Aminotransferase 29 U/L (ALT/SGPT) Alkaline Phosphatase 106 U/L Total Creatine Kinase 185 U/L Creatine Kinase MB 2.0 NG/ML Troponin I LESS THAN 0.02 NG/ML Total Protein 7.4 GM/DL Albumin 3.9 GM/DL [facility] Medical Decision Making Medical Screen Exam Complete: Yes Emergency Medical Condition: Yes Medical Record Reviewed: Yes Interpretation(s) EKG shows a sinus rhythm at a rate of 80 bpm with no signs of acute ST-T changes. No significant PVC. Last 24 hours Impressions Chest X-Ray 06/28/16 0853 Signed Impressions: Service Date/Time: June 08:51 - CONCLUSION: No acute disease. Khris Cantrell MD Laboratory Tests Test 06/28/16 08:40 Creatinine 1.04 MG/DL (0.50-1.00) Estimat Glomerular Filtration 54 ML/MIN (>89) Rate Troponin I LESS THAN 0.02 NG/ML (0.02-0.05) Differential Diagnosis Intermittent chest painsdysrhythmias versus ACS versus pleurisy Narrative Course EKG and cardiac enzymes are initially negative. Patient is still having intermittent chest discomfort. At this point, my plan would be to get her admitted to chest pain center for further evaluation. Procedures EKG Prior to Arrival: No Diagnosis Primary Impression: Atypical chest pain Admitting Information Admitting Physician Requests: Admit Srini Lucas MD Jun 28, 2016 08:42
[2016-06-28 08:43] VITALS: BP_SYST 135; BP_SYST 138; BP_DIAS 61; BP_DIAS 88; PULSE 77; RESP 18; O2SAT 98
[2016-06-28] MEDS ORDERED: SODIUM CHLORIDE 0.9% FLUSH 5 ML FLUSH IVF PRN ×2 (08:45→11:15)
[2016-06-28 08:52] LABS: BASOPHIL % 0.6 % (0.0-2.0); EOSINOPHIL # 0.1 TH/MM3 (0-0.4); EOSINOPHIL % 1.8 % (0.0-4.0); HEMATOCRIT 40.7 % (35.0-46.0); HEMO FLAGS DIFF FINAL; LYMPH % 31.7 % (9.0-44.0); LYMPHOCYTE # 1.6 TH/MM3 (1.0-4.8); MEAN CELL VOLUME 90.2 FL (80.0-100.0); MEAN CORPUSCULAR HEMOGLOBIN 29.7 PG (27.0-34.0); MEAN CORPUSCULAR HGB CONC 32.9 % (32.0-36.0); MONO % 7.8 % (0.0-8.0); NEUT % 58.1 % (16.0-70.0); PLATELET COUNT 204 TH/MM3 (150-450); RED BLOOD COUNT 4.51 MIL/MM3 (4.00-5.30); RED CELL DISTRIBUTION WIDTH 12.3 % (11.6-17.2); WHITE BLOOD COUNT 5.1 TH/MM3 (4.0-11.0)
[2016-06-28 09:03] LABS: APTT (PATIENT) 24.5 SEC (24.3-30.1); PROTHROMBIN TIME - PATIENT 10.8 SEC (9.8-11.6)
[2016-06-28 09:11] LABS: ANION GAP 9 MEQ/L (5-15); AST (GOT) 20 U/L (15-37); BICARBONATE 25.9 MEQ/L (21.0-32.0); BLOOD UREA NITROGEN 14 MG/DL (7-18); CHLORIDE 105 MEQ/L (98-107); GLOMERULAR FILTRATION RATE 54 ML/MIN (>89); MAGNESIUM 2.2 MG/DL (1.5-2.5); SODIUM (NA) 140 MEQ/L (136-145)
--- NOTE | 2016-06-28 09:12 | RADRPT ---
EXAM DATE/TIME: 06/28/2016 08:51 [place] COMPARISON: CHEST SINGLE AP, June 13, 2016, 8:18. INDICATIONS : Patient woke up this morning with chest pain. She states they come and go. MEDICAL HISTORY : None. SURGICAL HISTORY : None. ENCOUNTER: Initial ACUITY: 1 day PAIN SCORE: 0/10 LOCATION: Bilateral chest FINDINGS: A single view of the chest demonstrates the lungs to be symmetrically aerated without evidence of mas s, infiltrate or effusion. The cardiomediastinal contours are unremarkable. Osseous structures are intact. CONCLUSION: No acute disease. Khris Cantrell MD on June 28, 2016 at 9:09 Board Certified Radiologist. This report was verified electronically.
[2016-06-28 09:15] LABS: ALKALINE PHOSPHATASE 106 U/L (45-117); ALT (GPT) 29 U/L (10-53); CREATINE KINASE 185 U/L (26-192); TOTAL BILIRUBIN ADULT 0.5 MG/DL (0.2-1.0)
[2016-06-28 10:00] VITALS: BP 135/67; PULSE 66; RESP 17; O2SAT 98
[2016-06-28] MEDS ORDERED: ONDANSETRON HCL 4 MG/2 ML VIAL IV PRN (11:15)
[2016-06-28] MEDS ORDERED: ACETAMINOPHEN/HYDROcodone 325 MG/7.5 MG TAB PO PRN (11:15)
[2016-06-28] MEDS ORDERED: ACETAMINOPHEN 500 MG CPLT PO PRN (11:15)
[2016-06-28] MEDS ORDERED: cloNIDine HCL 0.1 MG TAB PO PRN (11:15)
--- NOTE | 2016-06-28 11:18 | HHI.HP ---
[facility] Primary Care Physician Jair Rosario MD Chief Complaint Chest pain History of Present Illness This is a 61-year-old female that presents to the ED via private vehicle with a complaint of chest discomfort and hypertension. Patient's history of hypertension and hyperlipidemia. She was admitted to the hospital June 13 for palpitations and chest discomfort. She was seen by Dr. Eastman and her blood pressure medicine was increased from 20 mg to 40 mg. She was to follow with him in one week for stress testing. She states her blood pressures have been much better however she is concerned as the 40 mg tablet is yellow color and she has an allergy to yellow-colored dye. Then 5:00 this morning while in bed the patient developed a sharp discomfort just left of her sternum. It is very intense. It lasted a split second but continue to recur about every minute for 10 minutes. Then she began checking her blood pressures and found that her blood pressures were in the 150s/80s. She took her blood pressure medication and came into the ED. She had no associated symptoms with her discomfort. Review of Systems General: Patient denies fevers, chills recent, and recent travel HEENT: Patient denies headache, sore throat, difficulty swallowing. Cardiovascular: Has the chest discomfort as mentioned above. Denies sensation of heart beating rapidly or irregularly. No syncope. Denies diaphoresis. Respiratory: Denies shortness of breath or inspirational chest discomfort. Denies coughing wheezing or hemoptysis. GI: Patient denies nausea, vomiting, diarrhea, abdominal pain, bloody stools. Musculoskeletal: Patient denies joint pain or edema. Denies calf pain or edema. Neurovascular: Patient denies numbness, tingling, weakness in extremities. Denies headache. Endocrine: Denies polyuria and polydipsia. Hematologic: Denies easy bruising. Skin: Denies rash or itching. Past Family Social History Allergies: Coded Allergies: Tartrazine (FD&C Yellow #5) (Verified Allergy, Severe, 06/28/16) Past Medical History Hypertension and hyperlipidemia. Denies diabetes and CAD. Past Surgical History Noncontributory. Reported Medications Reported Meds & Active Scripts Active Lisinopril 40 Mg Tab 40 Mg PO DAILY Reported Aspirin 81 Mg Tabdr 81 Mg PO BID Prozac (Fluoxetine HCl) 10 Mg Cap 60 Mg PO DAILY Atorvastatin (Atorvastatin Calcium) 20 Mg Tab 40 Mg PO HS Active Ordered Medications Current Medications Medications (Trade) Dose Ordered Sig/Derick Route Start Time Stop Time Status Last Admin (NS Flush) 2 ml UNSCH PRN IVF 06/28/16 08:45 (NS Flush) 2 ml UNSCH PRN IVF 06/28/16 11:15 UNV (NS Flush) 2 ml BID IVF 06/28/16 21:00 UNV (Tylenol) 500 mg Q4H PRN PO 06/28/16 11:15 UNV ([place] 7.5-325 Mg) 1 tab Q4H PRN PO 06/28/16 11:15 UNV (Zofran Inj) 4 mg Q6H PRN IV 06/28/16 11:15 UNV (Aspirin) 325 mg DAILY PO 06/29/16 09:00 UNV (Lipitor) 40 mg HS PO 06/28/16 21:00 UNV (PROzac) 60 mg DAILY PO 06/29/16 09:00 UNV (Catapres) 0.1 mg Q4H PRN PO 06/28/16 11:15 UNV Family History Denies family history of CAD. Social History Patient does not smoke, drink alcohol, or use illicit drugs. She is . Physical Exam Vital Signs Vital Signs Date Time Temp Pulse Resp B/P Pulse Ox O2 Delivery O2 Flow Rate FiO2 06/28/16 08:43 77 18 135/88 98 Room Air 138/61 06/28/16 08:30 06/28/16 08:24 98.1 80 20 172/79 98 Room Air Physical Exam GENERAL: This is a well-nourished, well-developed patient, in no apparent distress. Patient speaks in clear complete sentences. Patient is pleasant. HEENT: Head is atraumatic and normocephalic. Neck is supple without lymphadenopathy and trachea is midline. No JVD or carotid bruits. CARDIOVASCULAR: Regular rate and rhythm without murmurs, gallops, or rubs. RESPIRATORY: Chest wall is very tender and lower sternal region. This is the same discomfort that she has been having. Clear to auscultation. Breath sounds equal bilaterally. No wheezes, rales, or rhonchi. No use of accessory muscles. GASTROINTESTINAL: Abdomen is nontender, nondistended. Abdomen soft. No obvious pulsatile mass or bruit. No CVA tenderness. Strong femoral pulses bilaterally. Normal bowel sounds in all quadrants. MUSCULOSKELETAL: Patient is moving upper and lower extremities freely. No calf tenderness or edema, no Homans sign. Strong pulses in upper and lower extremities. NEUROLOGICAL: Patient is alert and oriented. Cranial nerves 2-12 are grossly intact. No focal deficits and speech is clear. SKIN: No rash and turgor is normal. Laboratory Laboratory Tests Test 06/28/16 08:40 White Blood Count 5.1 Red Blood Count 4.51 Hemoglobin 13.4 Hematocrit 40.7 Mean Corpuscular Volume 90.2 Mean Corpuscular Hemoglobin 29.7 Mean Corpuscular Hemoglobin 32.9 Concent Red Cell Distribution Width 12.3 Platelet Count 204 Mean Platelet Volume 8.5 Neutrophils (%) (Auto) 58.1 Lymphocytes (%) (Auto) 31.7 Monocytes (%) (Auto) 7.8 Eosinophils (%) (Auto) 1.8 Basophils (%) (Auto) 0.6 Neutrophils # (Auto) 3.0 Lymphocytes # (Auto) 1.6 Monocytes # (Auto) 0.4 Eosinophils # (Auto) 0.1 Basophils # (Auto) 0.0 CBC Comment DIFF FINAL Differential Comment Prothrombin Time 10.8 Prothromb Time International 1.0 Ratio Activated Partial 24.5 Thromboplast Time Sodium Level 140 Potassium Level 4.0 Chloride Level 105 Carbon Dioxide Level 25.9 Anion Gap 9 Blood Urea Nitrogen 14 Creatinine 1.04 Estimat Glomerular Filtration 54 Rate Random Glucose 97 Calcium Level 8.8 Magnesium Level 2.2 Total Bilirubin 0.5 Aspartate Amino Transf 20 (AST/SGOT) Alanine Aminotransferase 29 (ALT/SGPT) Alkaline Phosphatase 106 Total Creatine Kinase 185 Creatine Kinase MB 2.0 Troponin I LESS THAN 0.02 Total Protein 7.4 Albumin 3.9 Result Diagram: 06/28/16 0840 06/28/16 0840 Imaging Last Impressions Chest X-Ray 06/28/16 0838 Signed Impressions: Service Date/Time: June 08:51 - CONCLUSION: No acute disease. Khris Cantrell MD Course Initial EKG is sinus rhythm without significant ST segment depressions or elevations. It is similar to prior EKG from earlier this month. Assessment and Plan Assessment and Plan * Atypical chest pain: Patient had first normal troponin and EKG. She will be seen by Dr. Snow cardiology in the [place] and [place]. I have spoken with Dr. Eastman and he has recommended that we discontinue lisinopril and change her to losartan 100 mg once a day and metoprolol tartrate 25 mg twice a day and he will set her up for appointment either Saturday or Saturday of next week. He does not want a stress test. * Hypertension: Will discontinue lisinopril. We will start losartan and metoprolol tartrate. * Hyperlipidemia: Continue current medication. Patient is stable. She is agreeable to this plan. Syed Dumont Jun 28, 2016 11:18
[2016-06-28 11:26] VITALS: O2SAT 98
[2016-06-28 12:31] LABS: CREATINE KINASE 168 U/L (26-192)
[2016-06-28] MEDS ORDERED: LOSA100T PO (12:33)
[2016-06-28] MEDS ORDERED: METO25TA3 PO (12:33)
--- NOTE | 2016-06-28 12:33 | HHI.DCPOC ---
Discharge Care Plan Diagnosis: (1) Atypical chest pain (2) HTN (hypertension) Goals to Promote Your Health * To prevent worsening of your condition and complications * To maintain your health at the optimal level Directions to Meet Your Goals Take your medications as prescribed Follow your dietary instruction Follow activity as directed Keep your appointments as scheduled Take your immunizations and boosters as scheduled If your symptoms worsen call your PCP, if no PCP go to Urgent Care Center or Emergency Room Smoking is Dangerous to Your Health. Avoid second hand smoke Call the 24-hour hour crisis hotline for domestic abuse at Syed Dumont Jun 28, 2016 12:33
[2016-06-28 12:43] LABS: CKMB 1.4 NG/ML (0.5-3.6)
[2016-06-28 13:02] VITALS: BP 135/63; PULSE 76; RESP 16; O2SAT 98
--- NOTE | 2016-06-28 13:46 | EKG ---
Date Performed: 06/28/2016 Time Performed: 08:36:21 PTAGE: 61 years EKG: Sinus rhythm INDETERMINATE AXIS ATYPICAL ECG PREVIOUS TRACING : 06/13/2016 20.33 DOCTOR: Michele Carmona Interpretating Date/Time 06/28/2016 13:44:15
[2016-06-28] MEDS ORDERED: SODIUM CHLORIDE 0.9% FLUSH 5 ML FLUSH IVF SCH (21:00)
[2016-06-28] MEDS ORDERED: ATORVASTATIN 40 MG TAB PO SCH (21:00)
--- NOTE | 2016-06-28 21:05 | EKG ---
Date Performed: 06/28/2016 Time Performed: 11:43:41 PTAGE: 61 years EKG: Sinus rhythm INDETERMINATE AXIS ATYPICAL ECG Since PREVIOUS TRACING , no significant change noted PREVIOUS TRACIN06/28/2016 08.36 DOCTOR: Elise Snow Interpretating Date/Time 06/28/2016 21:03:12
[2016-06-29] MEDS ORDERED: ASPIRIN 325 MG TAB PO SCH (09:00)
[2016-06-29] MEDS ORDERED: FLUoxetine HCL 20 MG CAP PO SCH (09:00)
== END 2016-06-28 13:36 | disposition home or self-care (01) ==
LOC: NEPC 08:22 → NEDA 09:50
PROVIDERS: ADMIT Internal Medicine Interventional Cardiology; ATTEND Internal Medicine Interventional Cardiology
DX: R07.89 Other chest pain (principal); I10 Essential (primary) hypertension; E78.00 Pure hypercholesterolemia, unspecified; E78.5 Hyperlipidemia, unspecified; Z88.8 Allergy status to other drugs, medicaments and biological substances; Z79.82 Long term (current) use of aspirin
CPT/HCPCS: 71010; 80053; 82550; 82552; 83735; 84484; 85025; 85610; 85730; 93005; 99285; G0378